=== PATIENT | female | born 1960 | race Caucasian/White ===

== ENCOUNTER 2022-06-09 16:24 | Emergency (ER) | payer OTHER ==
[~2022-06-09] VITALS: Ht 160 cm; Wt 77.3 kg
[2022-06-09] MEDS ORDERED: METF750T36 (16:34)
[2022-06-09] MEDS ORDERED: PERC5TAB12 PO (22:04)
[2022-06-09] MEDS ORDERED: OXYCODONE/APAP 5MG/325MG(HOME DOSE PACK) PO ONE (22:05)
[2022-06-09 22:20] VITALS: BP 128/88
== END 2022-06-09 22:22 | disposition home or self-care (01) ==
LOC: M ED 16:24
DX: S52.125A Nondisplaced fracture of head of left radius, initial encounter for closed fracture (principal); W01.0XXA Fall on same level from slipping, tripping and stumbling without subsequent striking against object, initial encounter; Y93.K1 Activity, walking an animal; Y92.009 Unspecified place in unspecified non-institutional (private) residence as the place of occurrence of the external cause; J45.909 Unspecified asthma, uncomplicated; Z88.5 Allergy status to narcotic agent; Z88.8 Allergy status to other drugs, medicaments and biological substances; Z79.899 Other long term (current) drug therapy; Z79.84 Long term (current) use of oral hypoglycemic drugs

== ENCOUNTER → 2022-06-13 | Outpatient (CLI) | payer OTHER ==
[~2022-06-13] MED LIST: IBUP200C25 PO; METF750T36 PO; PERC5TAB12 PO
== END ==
LOC: M LABSMTC 09:16
PROVIDERS: ATTEND Anesthesiology
DX: Z01.818 Encounter for other preprocedural examination (principal); Z11.52 Encounter for screening for COVID-19

== ENCOUNTER 2022-06-15 08:17 | Day surgery (SDC) | payer OTHER ==
[~2022-06-15] VITALS: Ht 160 cm; Wt 78.0 kg
[~2022-06-15 08:17] MED LIST changes: +LIDOCAINE 2% 100MG/5ML SDV (FOR ANES.) As Ordered ONE; +MIDAZOLAM INJ 2MG/2ML VIAL (J2250 PER 1MG) As Ordered ONE; +ONDANSETRON 4MG 2ML VIAL As Ordered ONE; +ROCURONIUM BROMIDE 50MG/5ML VIAL As Ordered ONE; +SUGAMMADEX SODIUM 500 MG/5 ML VIAL (BRIDION) As Ordered ONE; +fentaNYL 100 MCG/2 ML INJECTION As Ordered ONE; +propofoL 200 MG/20 ML VIAL As Ordered ONE
[2022-06-15] MEDS ORDERED: LR 1,000 ML IV SCH ×2 (08:55→12:00)
[2022-06-15] MEDS ORDERED: LIDOCAINE 1% SDV 5ML VIAL PN ONE (09:00)
[2022-06-15] MEDS ORDERED: MIDAZOLAM INJ 2MG/2ML VIAL (J2250 PER 1MG) IV PRN (09:00)
[2022-06-15] MEDS ORDERED: ROPIvacaine 0.5% 30ML VIAL PN ONE (09:00)
[2022-06-15] MEDS ORDERED: fentaNYL 100 MCG/2 ML INJECTION IV PRN ×2 (09:00→12:00)
[2022-06-15] MEDS ORDERED: ceFAZolin 1GM VIAL As Ordered ONE (10:11)
[2022-06-15] MEDS ORDERED: CLINDAMYCIN 900MG/50ML PREMIX BAG As Ordered ONE (10:32)
[2022-06-15] MEDS ORDERED: ONDANSETRON 4MG 2ML VIAL IV PRN (12:00)
[2022-06-15] MEDS ORDERED: HYDROMORPHONE HCL 0.5 MG/ 0.5 ML SYRINGE (J1170 PER 1) IV PRN (12:00)
[2022-06-15] MEDS ORDERED: oxyCODONE 5MG TAB PO PRN (12:00)
[2022-06-15] MEDS ORDERED: PERC5TAB12 PO (12:24)
[2022-06-15 13:30] VITALS: BP 135/85
== END 2022-06-15 13:50 | disposition home or self-care (01) ==
LOC: M SDC 08:17
PROVIDERS: ATTEND Orthopaedic Surgery Hand Surgery
DX: S52.122A Displaced fracture of head of left radius, initial encounter for closed fracture (principal); W01.0XXA Fall on same level from slipping, tripping and stumbling without subsequent striking against object, initial encounter; Y93.K1 Activity, walking an animal; Y92.89 Other specified places as the place of occurrence of the external cause; Y99.9 Unspecified external cause status; R73.03 Prediabetes; K21.9 Gastro-esophageal reflux disease without esophagitis; J45.909 Unspecified asthma, uncomplicated; Z88.1 Allergy status to other antibiotic agents; Z88.5 Allergy status to narcotic agent; Z79.84 Long term (current) use of oral hypoglycemic drugs; Z79.899 Other long term (current) drug therapy
CPT/HCPCS: 24666; 76000; 93005; C1713; J1100; J2250; J2405; J2795; J3010

== ENCOUNTER → 2022-06-21 | Outpatient (CLI) | payer OTHER ==
[~2022-06-21] MED LIST changes: -LIDOCAINE 2% 100MG/5ML SDV (FOR ANES.) As Ordered ONE; -MIDAZOLAM INJ 2MG/2ML VIAL (J2250 PER 1MG) As Ordered ONE; -ONDANSETRON 4MG 2ML VIAL As Ordered ONE; -ROCURONIUM BROMIDE 50MG/5ML VIAL As Ordered ONE; -SUGAMMADEX SODIUM 500 MG/5 ML VIAL (BRIDION) As Ordered ONE; -fentaNYL 100 MCG/2 ML INJECTION As Ordered ONE; -propofoL 200 MG/20 ML VIAL As Ordered ONE
== END ==
LOC: M SOG 10:13
PROVIDERS: ATTEND Physician Assistant
DX: S52.122A Displaced fracture of head of left radius, initial encounter for closed fracture (principal); Z96.622 Presence of left artificial elbow joint

== ENCOUNTER → 2022-07-04 | Outpatient (CLI) | payer OTHER | LOC: M SOG 08:03 | PROVIDERS: ATTEND Physician Assistant | DX: S52.122D Displaced fracture of head of left radius, subsequent encounter for closed fracture with routine healing (principal); Z96.622 Presence of left artificial elbow joint ==

== ENCOUNTER → 2022-09-13 | Outpatient (CLI) | payer OTHER | LOC: M SOG 09:50 | PROVIDERS: ATTEND Physician Assistant | DX: M25.622 Stiffness of left elbow, not elsewhere classified (principal); S52.122D Displaced fracture of head of left radius, subsequent encounter for closed fracture with routine healing ==

== ENCOUNTER → 2023-11-13 | Outpatient (REF) | payer OTHER ==
[2023-11-20 08:13] LABS: LDL DIRECT 168 mg/dL (0-99)
== END ==
LOC: M LAB REF 16:36
PROVIDERS: ATTEND Internal Medicine
DX: E78.5 Hyperlipidemia, unspecified (principal)

== ENCOUNTER → 2025-02-15 | Outpatient (REF) | payer OTHER | LOC: M SFHCDERM 17:02 | PROVIDERS: ATTEND Physician Assistant | DX: T14.90XD Injury, unspecified, subsequent encounter (principal) ==

== ENCOUNTER → 2025-03-11 | Outpatient (REF) | payer OTHER | LOC: M SFHCDERM 17:04 | PROVIDERS: ATTEND Physician Assistant | DX: T14.90XD Injury, unspecified, subsequent encounter (principal) ==